=== PATIENT | female | born 1995 | race Caucasian/White ===

== ENCOUNTER 2016-09-18 10:05 | Emergency (ER) | payer SELFPAY ==
--- NOTE | 2016-09-18 11:26 | ER Document Report ---
HPI - HPI Patient complains to provider of: cold Pain Level: 3 Context: 21 yo female with 5 day hx/o runny nose, sore throat, cough, body ache and chills. Associated Symptoms: Nonproductive cough, Headache, Sinus pain/drainage, Sore throat. denies: Nausea, Vomiting, Shortness of breath Exacerbated by: Denies Relieved by: Denies Similar symptoms previously: Yes Recently seen / treated by doctor: No - ROS Systems Reviewed and Negative: Yes All other systems reviewed and negative - CARDIOVASCULAR Cardiovascular: DENIES: Chest pain - DERM Skin Color: Normal Past Medical History - General Information source: Patient - Social History Smoking Status: Never Smoker Chew tobacco use (# tins/day): No Frequency of alcohol use: None Drug Abuse: None Occupation: [employer] Lives with: Family Family History: Reviewed & Not Pertinent Patient has suicidal ideation: No Patient has homicidal ideation: No - Medical History Medical History: Negative Renal/ Medical History: Denies: Hx Peritoneal Dialysis Surgical Hx: Negative - Immunizations Hx Diphtheria, Pertussis, Tetanus Vaccination: Yes Vertical Provider Document - CONSTITUTIONAL Agree With Documented VS: Yes Exam Limitations: No Limitations General Appearance: WD/WN, No Apparent Distress - INFECTION CONTROL TRAVEL OUTSIDE OF THE [place] IN LAST 30 DAYS: No - HEENT HEENT: Atraumatic, PERRLA, Pharyngeal Tenderness, Pharyngeal Erythema. negative : Pharyngeal Exudate - NECK Neck: Normal Inspection, Supple. negative: Lymphadenopathy-Left, Lymphadenopathy-Right - RESPIRATORY Respiratory: Breath Sounds Normal, No Respiratory Distress O2 Sat by Pulse Oximetry: 97 - CARDIOVASCULAR Cardiovascular: Regular Rate, Regular Rhythm - MUSCULOSKELETAL/EXTREMETIES Musculoskeletal/Extremeties: MAEW, FROM - NEURO Level of Consciousness: Awake, Alert, Appropriate - DERM Integumentary: Warm, Dry, No Rash Course - Vital Signs Vital signs: Temp Pulse Resp BP Pulse Ox 98.4 F 85 20 116/73 97 09/18/16 10:10 09/18/16 10:10 09/18/16 10:10 09/18/16 10:10 09/18/16 10:10 Discharge - Discharge Clinical Impression: URI (upper respiratory infection) Qualifiers: URI type: unspecified viral URI Qualified Code(s): J06.9 - Acute upper respiratory infection, unspecified; B97.89 - Other viral agents as the cause of diseases classified elsewhere Condition: Stable Disposition: HOME, SELF-CARE Instructions: Acetaminophen, Sore Throat ([facility]), Upper Respiratory Illness ([facility]) Additional Instructions: lozenges salt water gargles cough med as needed push fluids and rest follow up with primary care if symptoms persist or worsen Prescriptions: Phenylephrine HCl/Cod/Prometh [Phenergan Vc-Codeine Syrup] 5 - 10 ml PO Q4H # 120 ml Forms: Return to Work
[2016-09-18 11:49] VITALS: BP 100/59
== END 2016-09-18 11:49 | disposition home or self-care (01) ==
LOC: ER 10:05
DX: J06.9 Acute upper respiratory infection, unspecified (principal); M79.1 Myalgia; B97.89 Other viral agents as the cause of diseases classified elsewhere
CPT/HCPCS: 87070; 87880; 99283

== ENCOUNTER 2018-05-13 13:06 | Emergency (ER) | payer SELFPAY ==
[2018-05-13 13:14] VITALS: BP 123/65
[2018-05-13] MEDS ORDERED: LORATADINE 10 MG TABLET PO ONE (13:59)
[2018-05-13] MEDS ORDERED: IBUPROFEN 600 MG TABLET PO ONE (13:59)
[2018-05-13] MEDS ORDERED: GUAIFENESIN 600 MG TABLET.SA PO ONE (13:59)
[2018-05-13] MEDS ORDERED: PSEUDOEPHEDRINE HCL 30 MG TABLET PO ONE (13:59)
--- NOTE | 2018-05-13 14:06 | ER Document Report ---
ED ENT - General Chief Complaint: Sore Throat Stated Complaint: SORE THROAT/COUGH Time Seen by Provider: 05/13/18 13:47 Mode of Arrival: Ambulatory Information source: Patient Notes: 21-year-old female presented to ED for cough cold congestion sore throat with right ear pain postnasal drip. She states she has been having these symptoms for about 3 or 4 days. Patient is alert and oriented respirations regular and unlabored speaking in full sentences walks with a even steady gait. TRAVEL OUTSIDE OF THE [place] IN LAST 30 DAYS: No - HPI Patient complains to provider of: Ear problem, Nose problem, Throat problem Onset: Other - 3 days Onset/Duration: Intermittent Quality of pain: Achy Severity: Moderate Pain Level: 3 Context: Recent Illness Location of pain: Ears, Nose, Sinus, Throat Associated symptoms: Congestion, Cough, Ear pain, Runny nose, Sinus pain, Sinus drainage, Sore throat. denies: Fever Similar symptoms previously: Yes Recently seen / treated by doctor: No - Related Data Allergies/Adverse Reactions: No Known Drug Allergies Allergy (Verified 05/13/18 13:07) Past Medical History - General Information source: Patient - Social History Smoking Status: Never Smoker Chew tobacco use (# tins/day): No Frequency of alcohol use: Rare Drug Abuse: None Occupation: fast food Lives with: Spouse/Significant other Family History: Reviewed & Not Pertinent Patient has suicidal ideation: No Patient has homicidal ideation: No - Past Medical History Cardiac Medical History: Reports: None Pulmonary Medical History: Reports: None EENT Medical History: Reports: None Neurological Medical History: Reports: None Endocrine Medical History: Reports: None Renal/ Medical History: Reports: None Malignancy Medical History: Reports: None GI Medical History: Reports: None Musculoskeletal Medical History: Reports None Skin Medical History: Reports None Psychiatric Medical History: Reports: None Traumatic Medical History: Reports: None Infectious Medical History: Reports: None Surgical Hx: Negative Past Surgical History: Reports: None - Immunizations Immunizations up to date: Yes Hx Diphtheria, Pertussis, Tetanus Vaccination: Yes Review of Systems - Review of Systems Constitutional: Recent illness. denies: Chills, Fever EENT: Ear pain, Nose congestion, Nose discharge, Sinus pressure, Sinus discharge, Throat pain Cardiovascular: No symptoms reported Respiratory: Cough Gastrointestinal: No symptoms reported Genitourinary: No symptoms reported Female Genitourinary: No symptoms reported Musculoskeletal: No symptoms reported Skin: No symptoms reported Hematologic/Lymphatic: No symptoms reported Neurological/Psychological: No symptoms reported Physical Exam - Vital signs Vitals: Temp Pulse Resp BP Pulse Ox 98.3 F 77 16 123/65 98 05/13/18 13:12 05/13/18 13:12 05/13/18 13:12 05/13/18 13:12 05/13/18 13:12 Interpretation: Normal - General General appearance: Appears well, Alert - HEENT Head: Normocephalic, Atraumatic Eyes: Normal Pupils: PERRL Ears: Normal External canal: Normal Tympanic membrane: Normal Sinus: Normal Nasal: Purulent discharge, Swelling Mouth/Lips: Normal Mucous membranes: Normal Pharynx: Post nasal drainage. No: Erythema, Exudate, Peritonsillar abscess, Retropharyngeal abscess, Tonsillar hypertrophy, Potential airway comprom. Neck: Normal - Respiratory Respiratory status: No respiratory distress Chest status: Nontender Breath sounds: Nonproductive cough. No: Productive cough, Rales, Rhonchi, Stridor, Wheezing Chest palpation: Normal - Cardiovascular Rhythm: Regular Heart sounds: Normal auscultation Murmur: No - Abdominal Inspection: Normal Distension: No distension Bowel sounds: Normal Tenderness: Nontender Organomegaly: No organomegaly - Back Back: Normal, Nontender - Extremities General upper extremity: Normal inspection, Nontender, Normal color, Normal ROM, Normal temperature General lower extremity: Normal inspection, Nontender, Normal color, Normal ROM, Normal temperature, Normal weight bearing. No: Andrés's sign - Neurological Neuro grossly intact: Yes Cognition: Normal Orientation: AAOx4 [place] Coma Scale Eye Opening: Spontaneous Zachery Coma Scale Verbal: Oriented Z[place]y Coma Scale Motor: Obeys Commands [place] Coma Scale Total: 15 Speech: Normal Motor strength normal: LUE, RUE, LLE, RLE Sensory: Normal - Psychological Associated symptoms: Normal affect, Normal mood - Skin Skin Temperature: Warm Skin Moisture: Dry Skin Color: Normal Course - Vital Signs Vital signs: Temp Pulse Resp BP Pulse Ox 98.3 F 77 16 123/65 98 05/13/18 13:12 05/13/18 13:12 05/13/18 13:12 05/13/18 13:12 05/13/18 13:12 Discharge - Discharge Clinical Impression: Sore throat (viral) URI (upper respiratory infection) Qualifiers: URI type: unspecified viral URI Qualified Code(s): J06.9 - Acute upper respiratory infection, unspecified Condition: Stable Disposition: HOME, SELF-CARE Instructions: Family Physicians / Practices Additional Instructions: SORE THROAT: Sore throats may be caused by viruses, bacteria, or fungi. Most are due to a virus, and must get better on their own. Bacterial sore throats, particularly those due to "strep," need treatment with antibiotics. If an antibiotic is prescribed, be sure to take the medication for a full 10 days. Failure to take the antibiotic can result in complications such as rheumatic fever. Sometimes, an injection of antibiotics is given instead of pills or liquid. This single "shot" is equal in effectiveness to the oral medication. To relieve symptoms, take acetaminophen for pain. Sip clear liquids frequently, or eat popsicles or ice chips. Anesthetic sprays or lozenges may help. Make sure the air in the room is not too dry. Avoid using decongestants or antihistamines. Call the doctor if there is no improvement in two days, or if you have difficulty breathing, increasing throat pain, high fever, rash, or frequent vomiting. UPPER RESPIRATORY ILLNESS: You have a viral infection of the respiratory passages -- a "cold." This common infection causes nasal congestion, drainage, and often sore throat and cough. It is highly contagious. The disease usually lasts about 10 to 14 days. There is no "cure" for the viral infection -- it must run its course. If there is a complication, such as bacterial infection in the nose, sinuses, middle ear, or bronchial tubes, antibiotics may be required. The antibiotics won't affect the virus. Drink plenty of fluids. A humidifier may help. An expectorant medication or decongestant may make you more comfortable. Use acetaminophen or ibuprofen for fever or aches. See the doctor if fever persists over two days, if there is any significant worsening of your symptoms, or if you simply fail to improve as expected. USE OF ACETAMINOPHEN (Tylenol): Acetaminophen may be taken for pain relief or fever control. It's much safer than aspirin, offering a wider range of "safe" dosages. It is safe during . Some brand names are Tylenol, Panadol, Datril, Anacin 3, Tempra, and Liquiprin. Acetaminophen can be repeated every four hours. The following are maximum recommended dosages: >89 pounds or adults 650 mg to 900 mg Acetaminophen can be repeated every four hours. Maximum dose not to exceed 4000 mg a day. You were treated today with Claritin 10 mg, Sudafed 30 mg, Mucinex 600 mg, and ibuprofen 600 mg, these are all lxfn-yyd-oqveltr medications that you can use for your cough cold congestion and sore throat. You can also use Flonase nasal spray use as according to the box instructions. You can also use Chloraseptic spray which will help with the pain in your throat. You can also use salt and soda solution gargles which will decrease the secretions of the back your throat which will decrease her coughing. Salt and soda solution 1 quart of water 1 tablespoon of salt 1 teaspoon of baking soda Mixed 3 ingredients together and boil for 1 minute Placed in a covered quart jar Use 1/2 ounce of cold solution to gargle 3 times a day FOLLOW-UP CARE: If you have been referred to a physician for follow-up care, call the physicians office for an appointment as you were instructed or within the next two days. If you experience worsening or a significant change in your symptoms, notify the physician immediately or return to the Emergency Department at any time for re-evaluation. Forms: Return to Work
== END 2018-05-13 14:22 | disposition home or self-care (01) ==
LOC: ER 13:06
DX: J02.8 Acute pharyngitis due to other specified organisms (principal); B97.89 Other viral agents as the cause of diseases classified elsewhere; R05 Cough; H92.01 Otalgia, right ear; R09.82 Postnasal drip; J34.89 Other specified disorders of nose and nasal sinuses
CPT/HCPCS: 99282

== ENCOUNTER 2019-07-31 00:08 | Inpatient (IN) | payer SELFPAY ==
[2019-07-31] MEDS ORDERED: ACETAMINOPHEN 325 MG TABLET PO ONE (02:11)
[2019-07-31] MEDS ORDERED: CLINDAMYCIN 600 MG/D5W RTU 600 MG/50 ML RTUPB IV ONE (02:11)
[2019-07-31] MEDS ORDERED: NORMAL SALINE IV ONE (02:11)
[2019-07-31] MEDS ORDERED: OXYCODONE HCL IR 5 MG TABLET PO ONE (02:13)
--- NOTE | 2019-07-31 02:14 | ER Document Report ---
ED Oral Problem - General Chief Complaint: tooth abcess Stated Complaint: SEVERE TOOTHACHE Time Seen by Provider: 07/31/19 01:58 Mode of Arrival: Ambulatory Information source: Patient Notes: Patient presents with right lower jaw swelling that started yesterday. Patient has had dental pain for the past week. No fever. Patient has an upcoming dental appointment in 4 days. TRAVEL OUTSIDE OF THE [place] IN LAST 30 DAYS: No - HPI Patient complains to provider of: Swelling of jaw Onset: Yesterday Onset: Gradual Quality of pain: Achy Pain Level: 4 Associated symptoms: Jaw pain, Toothache. denies: Cough, Fever Similar symptoms previously: No Recently seen / treated by doctor/dentist: No - Related Data Allergies/Adverse Reactions: No Known Drug Allergies Allergy (Verified 05/13/18 13:07) Past Medical History - General Information source: Patient - Social History Smoking Status: Never Smoker Frequency of alcohol use: None Drug Abuse: None Occupation: Foodservice Lives with: Family Family History: Reviewed & Not Pertinent Patient has homicidal ideation: No - Medical History Medical History: Negative Renal/ Medical History: Denies: Hx Peritoneal Dialysis Surgical Hx: Negative - Immunizations Immunizations up to date: Yes Hx Diphtheria, Pertussis, Tetanus Vaccination: Yes Review of Systems - Review of Systems Constitutional: No symptoms reported. denies: Fever EENT: Dental problem Cardiovascular: No symptoms reported Respiratory: No symptoms reported. denies: Cough, Short of breath Gastrointestinal: No symptoms reported. denies: Nausea, Vomiting Genitourinary: No symptoms reported Female Genitourinary: No symptoms reported Musculoskeletal: No symptoms reported Skin: No symptoms reported Hematologic/Lymphatic: No symptoms reported Neurological/Psychological: No symptoms reported Physical Exam - Vital signs Vitals: Temp 99 F 07/31/19 00:16 - General General appearance: Appears well, Alert In distress: Mild - HEENT Head: Normocephalic, Atraumatic Eyes: Normal Conjunctiva: Normal Nasal: Normal Mouth/Lips: Normal Mucous membranes: Dry Teeth diagram: 1 - Dental decay, tenderness, no trismus, no sublingual or submental swelling. Patient with right mandibular swelling Pharynx: Normal. No: Erythema, Tonsillar hypertrophy Neck: Normal, Supple. No: Lymphadenopathy - Respiratory Respiratory status: No respiratory distress Chest status: Nontender Breath sounds: Normal. No: Rales, Rhonchi, Stridor, Wheezing Chest palpation: Normal - Cardiovascular Rhythm: Tachycardia Heart sounds: S1 appreciated, S2 appreciated - Abdominal Inspection: Normal - Back Back: Normal. No: CVA tenderness - Extremities General upper extremity: Normal inspection, Normal strength General lower extremity: Normal inspection, Normal strength - Neurological Neuro grossly intact: Yes Cognition: Normal Zachery Coma Scale Eye Opening: Spontaneous [place] Coma Scale Verbal: Oriented [place] Coma Scale Motor: Obeys Commands [place] Coma Scale Total: 15 - Psychological Associated symptoms: Normal affect, Normal mood - Skin Skin Temperature: Warm Skin Moisture: Dry Skin Color: Normal Course - Re-evaluation Re-evalutation: 07/31/19 03:37 Patient with leukocytosis with a shift and bandemia. Patient with no elevation in lactic acid. Patient's tachycardia and mild hypotension improved after IV fluid bolus. Consulted with Dr. Argueta regarding patient presentation. Recommends imaging of the facial infection at this time. 07/31/19 05:[address] Faye regarding patient presentation with concerns about initial hypotension, tachycardia, leukocytosis with bandemia. Agrees to admit patient to telemetry observation at this time. Patient is agreeable with this plan of care. - Vital Signs Vital signs: Temp Pulse Resp BP Pulse Ox 99.0 F 118 H 15 95/61 L 98 07/31/19 00:17 07/31/19 00:17 07/31/19 05:01 07/31/19 05:00 07/31/19 05:01 - Laboratory Result Diagrams: 07/31/19 01:34 07/31/19 01:34 Laboratory results interpreted by me: 07/31/19 07/31/19 07/31/19 01:34 01:34 02:40 WBC 15.6 H Seg Neuts % (Manual) 82 H Band Neutrophils % 7 H Lymphocytes % (Manual) 3 L Abs Neuts (Manual) 13.9 H Potassium 3.3 L BUN 6 L Glucose 115 H POC Glucose 114 H Labs- Entire Visit 07/31/19 07/31/19 07/31/19 01:34 01:34 01:34 WBC 15.6 H RBC 4.43 Hgb 13.4 Hct 38.5 MCV 87 MCH 30.3 MCHC 34.9 RDW 12.6 Plt Count 166 Lymph % (Auto) Not Reportable Mayes % (Auto) Not Reportable Eos % (Auto) Not Reportable Baso % (Auto) Not Reportable Absolute Neuts (auto) Not Reportable Absolute Lymphs (auto) Not Reportable Absolute Monos (auto) Not Reportable Absolute Eos (auto) Not Reportable Absolute Basos (auto) Not Reportable Total Counted 100 Seg Neutrophils % Not Reportable Seg Neuts % (Manual) 82 H Band Neutrophils % 7 H Lymphocytes % (Manual) 3 L Monocytes % (Manual) 7 Eosinophils % (Manual) 1 Basophils % (Manual) 0 Abs Neuts (Manual) 13.9 H Abs Lymphs (Manual) 0.5 Abs Monocytes (Manual) 1.1 Absolute Eos (Manual) 0.2 Abs Basophils (Manual) 0.0 Platelet Comment ADEQUATE RBC Morph Comment NORMO-CYTIC/CHROMIC PT 14.1 INR 1.09 VBG pH VBG pCO2 VBG HCO3 VBG Base Excess Sodium 138.8 Potassium 3.3 L Chloride 102 Carbon Dioxide 25 Anion Gap 12 BUN 6 L Creatinine 0.59 Est GFR ( Amer) > 60 Est GFR (MDRD) Non-Af > 60 Glucose 115 H POC Glucose Lactic Acid Calcium 9.1 Total Bilirubin 1.0 Direct Bilirubin 0.0 Neonat Total Bilirubin Not Reportable Neonat Direct Bilirubin Not Reportable Neonat Indirect Bili Not Reportable AST 17 ALT 10 Alkaline Phosphatase 66 Total Protein 7.5 Albumin 4.6 Serum HCG, Qual 07/31/19 07/31/19 07/31/19 01:34 02:40 02:40 WBC RBC Hgb Hct MCV MCH MCHC RDW Plt Count Lymph % (Auto) Mayes % (Auto) Eos % (Auto) Baso % (Auto) Absolute Neuts (auto) Absolute Lymphs (auto) Absolute Monos (auto) Absolute Eos (auto) Absolute Basos (auto) Total Counted Seg Neutrophils % Seg Neuts % (Manual) Band Neutrophils % Lymphocytes % (Manual) Monocytes % (Manual) Eosinophils % (Manual) Basophils % (Manual) Abs Neuts (Manual) Abs Lymphs (Manual) Abs Monocytes (Manual) Absolute Eos (Manual) Abs Basophils (Manual) Platelet Comment RBC Morph Comment PT INR VBG pH 7.37 VBG pCO2 40.0 VBG HCO3 22.8 VBG Base Excess -2.2 Sodium Potassium Chloride Carbon Dioxide Anion Gap BUN Creatinine Est GFR ( Amer) Est GFR (MDRD) Non-Af Glucose POC Glucose Lactic Acid 0.7 Calcium Total Bilirubin Direct Bilirubin Neonat Total Bilirubin Neonat Direct Bilirubin Neonat Indirect Bili AST ALT Alkaline Phosphatase Total Protein Albumin Serum HCG, Qual NEGATIVE 07/31/19 07/31/19 02:40 04:37 WBC RBC Hgb Hct MCV MCH MCHC RDW Plt Count Lymph % (Auto) Mayes % (Auto) Eos % (Auto) Baso % (Auto) Absolute Neuts (auto) Absolute Lymphs (auto) Absolute Monos (auto) Absolute Eos (auto) Absolute Basos (auto) Total Counted Seg Neutrophils % Seg Neuts % (Manual) Band Neutrophils % Lymphocytes % (Manual) Monocytes % (Manual) Eosinophils % (Manual) Basophils % (Manual) Abs Neuts (Manual) Abs Lymphs (Manual) Abs Monocytes (Manual) Absolute Eos (Manual) Abs Basophils (Manual) Platelet Comment RBC Morph Comment PT INR VBG pH VBG pCO2 VBG HCO3 VBG Base Excess Sodium Potassium Chloride Carbon Dioxide Anion Gap BUN Creatinine Est GFR ( Amer) Est GFR (MDRD) Non-Af Glucose POC Glucose 114 H Lactic Acid 0.7 Calcium Total Bilirubin Direct Bilirubin Neonat Total Bilirubin Neonat Direct Bilirubin Neonat Indirect Bili AST ALT Alkaline Phosphatase Total Protein Albumin Serum HCG, Qual - Diagnostic Test Radiology reviewed: Reports reviewed Discharge - Discharge Clinical Impression: Facial cellulitis, Bandemia Leukocytosis Qualifiers: Leukocytosis type: unspecified Qualified Code(s): D72.829 - Elevated white blood cell count, unspecified Condition: Fair Disposition: ADMITTED OBSERVATION Admitting Provider: Yunier (Hospitalist) Unit Admitted: Telemetry
[2019-07-31 02:28] LABS: ALBUMIN 4.6 g/dL (3.5-5.0); ALKALINE PHOSPHATASE 66 U/L (38-126); ANION GAP 12 (5-19); ASPARTATE AMINO TRANSFERASE 17 U/L (14-36); BLOOD UREA NITROGEN 6 mg/dL (7-20); CALCIUM 9.1 mg/dL (8.4-10.2); CARBON DIOXIDE 25 mmol/L (22-30); CHLORIDE 102 mmol/L (98-107); GLUCOSE 115 mg/dL (75-110); POTASSIUM 3.3 mmol/L (3.6-5.0); TOTAL PROTEIN 7.5 g/dL (6.3-8.2)
[2019-07-31 02:33] LABS: HEMATOCRIT 38.5 % (36.0-47.0); HEMOGLOBIN 13.4 g/dL (12.0-15.5); MEAN CORPUSCULAR HEMOGLOBIN 30.3 pg (27.0-33.4); MEAN CORPUSCULAR HGB CONC 34.9 g/dL (32.0-36.0); MEAN CORPUSCULAR VOLUME 87 fl (80-97); PLATELET COUNT 166 10^3/uL (150-450); RED BLOOD COUNT 4.43 10^6/uL (3.72-5.28); RED CELL DISTRIBUTION WIDTH 12.6 % (11.5-14.0); WHITE BLOOD COUNT 15.6 10^3/uL (4.0-10.5)
[2019-07-31 02:42] LABS: INTERNATIONAL RATION (INR) 1.09; PROTHROMBIN TIME 14.1 SEC (11.4-15.4)
[2019-07-31 02:55] LABS: ABSOLUTE LYMPHOCYTES# (MANUAL) 0.5 10^3/uL (0.5-4.7); ABSOLUTE MONOCYTES # (MANUAL) 1.1 10^3/uL (0.1-1.4); BAND NEUTROPHILS % (MANUAL) 7 % (3-5); BASOPHILS % (MANUAL) 0 % (0-2); EOSINOPHILS % (MANUAL) 1 % (0-6); LYMPHOCYTES % (MANUAL) 3 % (13-45); MONOCYTES % (MANUAL) 7 % (3-13); PLATELET COMMENT ADEQUATE; RBC MORPHOLOGY COMMENT NORMO-CYTIC/CHROMIC; SEGMENTED NEUTROPHILS % (MAN) 82 % (42-78); TOTAL CELLS COUNTED 100
[2019-07-31 02:56] LABS: VENOUS BLOOD BASE EXCESS -2.2 mmol/L; VENOUS BLOOD HCO3 22.8 mmol/L (20-32); VENOUS BLOOD PH 7.37 (7.30-7.42)
--- NOTE | 2019-07-31 04:55 | RADIOLOGY REPORT (SQ) ---
EXAM DESCRIPTION: CT MAXILLOFACIAL WITH IV CONTRAST COMPLETED DATE/TME: 07/31/2019 03:36 CLINICAL HISTORY: 24 years Female, dental infection, facial swelling Comparison: The. Technique: No contrast. Coronal and sagittal reformat. This exam was performed according to our departmental dose-optimization program, which includes automated exposure control, adjustment of the mA and/or kV according to patient size and/or use of iterative reconstruction technique.[facility]: Dose Right [facility]: CareDose [facility]: Dose Right [facility]: Teradose 4D [facility]: Smart [employer] LIMITATIONS: None Findings: Moderate diffuse subcutaneous edema/cellulitis associated with the right buccal tissue/jaw. Moderate bilateral submandibular lymphadenopathy. Impacted right mandibular molar. Facial bones including orbits, nasal bone, paranasal sinuses, and pterygoid plates appear otherwise intact. Unremarkable partially visualized inferior cranium, temporal bone, and upper neck. IMPRESSION: Moderate diffuse subcutaneous edema/cellulitis associated with the right buccal tissue/jaw. Moderate bilateral submandibular lymphadenopathy.
[2019-07-31] MEDS ORDERED: ACETAMINOPHEN 325 MG TABLET PO PRN (05:24)
[2019-07-31] MEDS ORDERED: MAG HYDROX/AL HYDROX/SIMETH SUSP 30 ML UDCUP PO PRN (05:25)
[2019-07-31] MEDS ORDERED: MAGNESIUM HYDROXIDE SUSP 30 ML UDCUP PO PRN (05:25)
[2019-07-31] MEDS ORDERED: ONDANSETRON HCL INJ/PF 4 MG/2 ML SDV IV PRN (05:25)
[2019-07-31] MEDS ORDERED: AMPICILLIN SOD/SULBACTAM 3 GM VIAL IV PRN (06:09)
--- NOTE | 2019-07-31 06:22 | PDOC H&P ---
History of Present Illness Admission Date/PCP: 07/31/19 05:33 Patient complains of: Tooth abscess History of Present Illness: LISA ADLER is a 24 year old female without significant past medical history who presents after 7 to 10 days of dental pain developing right lower jaw swelling prompting evaluation in emergency department where she is found to have facial cellulitis without abscess by CT imaging, sepsis with bandemia and hypokalemia. She is referred to the hospitalist for admission Past Medical History Medical History: None Past Surgical History Past Surgical History: Reports: None Social History Information Source: Patient, [facility] Records Lives with: Family Smoking Status: Never Smoker Frequency of Alcohol Use: None Drugs: None - Advance Directive Resuscitation Status: Full Code Family History Family History: Hypertension Parental Family History Reviewed: Yes Children Family History Reviewed: Yes Sibling(s) Family History Reviewed.: Yes Medication/Allergy Home Medications: No.137/Iron/Folic Acd [ Vitamin Tablet] 1 tab PO DAILY 10/29/14 Ferrous Sulfate [Feosol 325 mg Tablet] 325 mg PO BID #60 tablet 10/31/14 Phenylephrine HCl/Cod/Prometh [Phenergan Vc-Codeine Syrup] 5 - 10 ml PO Q4H #120 ml 09/18/16 Allergies/Adverse Reactions: No Known Drug Allergies Allergy (Verified 05/13/18 13:07) Review of Systems Constitutional: ABSENT: chills, fever(s), headache(s), weight gain, weight loss Eyes: ABSENT: visual disturbances Ears: ABSENT: hearing changes Cardiovascular: ABSENT: chest pain, dyspnea on exertion, edema, orthropnea, palpitations Respiratory: ABSENT: cough, hemoptysis Gastrointestinal: ABSENT: abdominal pain, constipation, diarrhea, hematemesis, hematochezia, nausea, vomiting Genitourinary: ABSENT: dysuria, hematuria Musculoskeletal: ABSENT: joint swelling Integumentary: ABSENT: rash, wounds Neurological: ABSENT: abnormal gait, abnormal speech, confusion, dizziness, focal weakness, syncope Psychiatric: ABSENT: anxiety, depression, homidical ideation, suicidal ideation Endocrine: ABSENT: cold intolerance, heat intolerance, polydipsia, polyuria Hematologic/Lymphatic: ABSENT: easy bleeding, easy bruising Physical Exam Vital Signs: Temp Pulse Resp BP Pulse Ox 99.0 F 118 H 15 95/61 L 98 07/31/19 00:17 07/31/19 00:17 07/31/19 05:01 07/31/19 05:00 07/31/19 05:01 Intake & Output 07/29/19 07/30/19 07/31/19 11:59 11:59 11:59 Intake Total 50 Balance 50 Weight 50.4 kg General appearance: PRESENT: cooperative, mild distress, well-developed, well- nourished Head exam: PRESENT: atraumatic, normocephalic Eye exam: PRESENT: conjunctiva pink, EOMI, PERRLA. ABSENT: scleral icterus Ear exam: PRESENT: normal external ear exam Mouth exam: PRESENT: moist, tongue midline, other - Right lower jaw swelling and pain no visible fluctuance Teeth exam: PRESENT: dental caries, poor dentation Throat exam: ABSENT: post pharyngeal erythema, tonsillar erythema, tonsillar exudate Neck exam: ABSENT: carotid bruit, JVD, lymphadenopathy, thyromegaly Respiratory exam: PRESENT: clear to auscultation nickolas. ABSENT: rales, rhonchi, wheezes Cardiovascular exam: PRESENT: tachycardia. ABSENT: diastolic murmur, rubs, systolic murmur Pulses: PRESENT: normal dorsalis pedis pul Vascular exam: PRESENT: normal capillary refill GI/Abdominal exam: PRESENT: normal bowel sounds, soft. ABSENT: distended, guarding, mass, organolmegaly, rebound, tenderness Rectal exam: PRESENT: deferred Extremities exam: PRESENT: full ROM. ABSENT: calf tenderness, clubbing, pedal edema Neurological exam: PRESENT: alert, awake, oriented to person, oriented to place, oriented to time, oriented to situation, CN II-XII grossly intact. ABSENT: motor sensory deficit Psychiatric exam: PRESENT: appropriate affect, normal mood. ABSENT: homicidal ideation, suicidal ideation Skin exam: PRESENT: dry, intact, warm. ABSENT: cyanosis, rash Results Laboratory Results: 07/31/19 01:34 07/31/19 01:34 07/31/19 07/31/19 07/31/19 01:34 01:34 01:34 WBC 15.6 H RBC 4.43 Hgb 13.4 Hct 38.5 MCV 87 MCH 30.3 MCHC 34.9 RDW 12.6 Plt Count 166 Seg Neutrophils % Not Reportable VBG pH VBG pCO2 VBG HCO3 VBG Base Excess Sodium 138.8 Potassium 3.3 L Chloride 102 Carbon Dioxide 25 Anion Gap 12 BUN 6 L Creatinine 0.59 Est GFR ( Amer) > 60 Glucose 115 H Lactic Acid Calcium 9.1 Total Bilirubin 1.0 AST 17 Alkaline Phosphatase 66 Total Protein 7.5 Albumin 4.6 Serum HCG, Qual NEGATIVE 07/31/19 07/31/19 07/31/19 02:40 02:40 04:37 WBC RBC Hgb Hct MCV MCH MCHC RDW Plt Count Seg Neutrophils % VBG pH 7.37 VBG pCO2 40.0 VBG HCO3 22.8 VBG Base Excess -2.2 Sodium Potassium Chloride Carbon Dioxide Anion Gap BUN Creatinine Est GFR ( Amer) Glucose Lactic Acid 0.7 0.7 Calcium Total Bilirubin AST Alkaline Phosphatase Total Protein Albumin Serum HCG, Qual Impressions: Facial Bones CT 07/31/19 03:36 IMPRESSION: Moderate diffuse subcutaneous edema/cellulitis associated with the right buccal tissue/jaw. Moderate bilateral submandibular lymphadenopathy. Assessment and Plan - Diagnosis (1) Sepsis Is this a current diagnosis for this admission?: Yes Plan: Secondary to facial cellulitis complicated by dental caries, IV fluid challenge, Unasyn, follow-up CBC blood culture. (2) Hypokalemia Is this a current diagnosis for this admission?: Yes Plan: IV potassium, follow-up magnesium and potassium labs (3) Bandemia Is this a current diagnosis for this admission?: Yes Plan: Secondary to #1, empiric antibiotics, follow-up blood culture (4) Facial cellulitis Is this a current diagnosis for this admission?: Yes Plan: Secondary to #1, symptomatic management, no abscess, anticipate oral surgery consult. - Time Time Spent with patient: 25-34 minutes - Inpatient Certification Medical Necessity: Need Close Monitoring Due to Risk of Patient Decompensation
[2019-07-31] MEDS: KETOROLAC TROMETHAMINE INJ/PF 30 MG/1 ML SDV IV PRN ×3 (06:44→19:48)
[2019-07-31] MEDS: AMPICILLIN SODIUM/SULBACTAM NA 3 GM in NORMAL SALINE 100 ML IV SCH ×4 (06:46→23:11)
[2019-07-31] MEDS: HEPARIN SOD (PORCINE) 5,000 UNIT/ML 1 ML VIAL SUBCUT SCH ×3 (06:54→21:02)
--- NOTE | 2019-07-31 08:46 | EKG REPORT ---
SEVERITY:- NORMAL ECG - SINUS RHYTHM : Confirmed by: Boby Toro MD 31-Jul-2019 08:46:19
[2019-07-31] MEDS: NORMAL SALINE 1000 ML 1,000 ML IV PRN ×3 (09:09→21:30)
[2019-07-31] MEDS: POTASSI CL 20 MEQ/50 ML RIDER 20 MEQ/50 ML RTUPB IV SCH ×2 (09:10→12:32)
[2019-07-31] MEDS: DOCUSATE SODIUM 100 MG CAPSULE PO SCH ×2 (10:40→17:50)
[2019-07-31] MEDS: OXYCODONE-ACETAMINOPHEN 5-325 MG TABLET PO PRN ×2 (10:43→23:12)
--- NOTE | 2019-07-31 17:57 | Progress Note ---
Provider Note Provider Note: Patient admitted late this morning by Dr. Faye. Started on antibiotics. I called oral surgery and spoke with their office. They will have 1 of their oral surgeons come to see the patient after 12 PM on Friday. We will continue antibiotics and follow-up cultures until then. Patient can have a liquid diet in the meantime she will be n.p.o. after breakfast on Friday. Patient seen and examined Added oral Percocet for pain management. IV fluids continue
[2019-08-01] MEDS: KETOROLAC TROMETHAMINE INJ/PF 30 MG/1 ML SDV IV PRN ×4 (04:57→23:58)
[2019-08-01] MEDS: HEPARIN SOD (PORCINE) 5,000 UNIT/ML 1 ML VIAL SUBCUT SCH ×3 (05:02→21:29)
[2019-08-01] MEDS: AMPICILLIN SODIUM/SULBACTAM NA 3 GM in NORMAL SALINE 100 ML IV SCH ×2 (05:02→11:20)
[2019-08-01 06:25] LABS: ABSOLUTE EOSINOPHILS # (AUTO) 0.1 10^3/uL (0.0-0.6); ABSOLUTE LYMPHOCYTES (AUTO) 0.6 10^3/uL (0.5-4.7); ABSOLUTE MONOCYTES (AUTO) 0.4 10^3/uL (0.1-1.4); ABSOLUTE NEUT (AUTO) 4.7 10^3/uL (1.7-8.2); BASOPHILS % (AUTO) 0.5 % (0-2); EOSINOPHILS % (AUTO) 0.9 % (0-6); HEMATOCRIT 31.5 % (36.0-47.0); LYMPHOCYTES % (AUTO) 9.7 % (13-45); MEAN CORPUSCULAR HEMOGLOBIN 30.9 pg (27.0-33.4); MEAN CORPUSCULAR HGB CONC 35.7 g/dL (32.0-36.0); MEAN CORPUSCULAR VOLUME 87 fl (80-97); MONOCYTES % (AUTO) 6.8 % (3-13); PLATELET COUNT 140 10^3/uL (150-450); RED BLOOD COUNT 3.64 10^6/uL (3.72-5.28); RED CELL DISTRIBUTION WIDTH 12.5 % (11.5-14.0); SEGMENTED NEUTROPHILS % (AUTO) 82.1 % (42-78); TOTAL CELLS COUNTED % (AUTO) 100 %; WHITE BLOOD COUNT 5.8 10^3/uL (4.0-10.5)
[2019-08-01 06:30] LABS: HEMOGLOBIN 11.2 g/dL (12.0-15.5)
[2019-08-01 06:45] LABS: ANION GAP 7 (5-19); BLOOD UREA NITROGEN 4 mg/dL (7-20); CALCIUM 7.7 mg/dL (8.4-10.2); CARBON DIOXIDE 21 mmol/L (22-30); CHLORIDE 106 mmol/L (98-107); GLUCOSE 100 mg/dL (75-110); POTASSIUM 3.5 mmol/L (3.6-5.0)
[2019-08-01] MEDS: OXYCODONE-ACETAMINOPHEN 5-325 MG TABLET PO PRN ×3 (09:18→21:35)
[2019-08-01] MEDS: DOCUSATE SODIUM 100 MG CAPSULE PO SCH ×2 (09:19→17:37)
[2019-08-01] MEDS: NORMAL SALINE 1000 ML 1,000 ML IV PRN ×2 (10:19→21:35)
--- NOTE | 2019-08-01 16:47 | PDOC PROGRESS REPORT ---
Subjective Progress Note for:: 08/01/19 Subjective:: Patient admitted yesterday for oral/facial cellulitis with significant trismus. I consulted oral surgery yesterday and they stated they would see patient tomorrow after 12 PM. She will be made n.p.o. after breakfast as she would not go into the OR at least until that afternoon. Blood cultures are growing gram- negative rods and she has been switched to Zosyn today. She states her jaw edema is coming down and her pain is a bit less as well. Otherwise she has no new complaints. She will need to be given stool softeners today to make sure she does not become constipated. Reason For Visit: SEPSIS FACIAL CELLULITIS Physical Exam Vital Signs: Temp Pulse Resp BP Pulse Ox 98.4 F 83 18 124/79 100 08/01/19 16:00 08/01/19 16:00 08/01/19 16:00 08/01/19 16:00 08/01/19 16:00 Intake & Output 07/31/19 08/01/19 08/02/19 06:59 06:59 06:59 Intake Total 1560 4210 1600 Output Total 1475 801 Balance 1560 2735 799 Weight 50.4 kg 50.4 kg General appearance: PRESENT: no acute distress, well-developed, well-nourished Head exam: PRESENT: atraumatic, normocephalic Eye exam: PRESENT: conjunctiva pink Mouth exam: PRESENT: moist, other - Trismus noted, broken/decayed tooth right side Respiratory exam: PRESENT: clear to auscultation nickolas. ABSENT: rales, rhonchi, wheezes Cardiovascular exam: PRESENT: RRR. ABSENT: diastolic murmur, rubs, systolic murmur GI/Abdominal exam: PRESENT: normal bowel sounds, soft. ABSENT: distended, guarding, mass, organolmegaly, rebound, tenderness Extremities exam: ABSENT: pedal edema Neurological exam: PRESENT: alert, awake, oriented to person, oriented to place, oriented to time, oriented to situation Psychiatric exam: PRESENT: appropriate affect, normal mood Skin exam: PRESENT: dry, intact, warm Results Laboratory Results: 08/01/19 05:29 08/01/19 05:29 08/01/19 08/01/19 08/01/19 05:29 05: 05:29 WBC 5.8 RBC 3.64 L Hgb 11.2 L D Hct 31.5 L MCV 87 MCH 30.9 MCHC 35.7 RDW 12.5 Plt Count 140 L Seg Neutrophils % 82.1 H Sodium 133.7 L Potassium 3.5 L Chloride 106 Carbon Dioxide 21 L Anion Gap 7 BUN 4 L Creatinine 0.48 L Est GFR ( Amer) > 60 Glucose 100 Calcium 7.7 L Magnesium 1.8 Impressions: Facial Bones CT 07/31/19 03:36 IMPRESSION: Moderate diffuse subcutaneous edema/cellulitis associated with the right buccal tissue/jaw. Moderate bilateral submandibular lymphadenopathy. Assessment and Plan - Diagnosis (1) Facial cellulitis Is this a current diagnosis for this admission?: Yes Plan: Oral surgery consulted, will see patient 08/01 Empiric IV antibiotics with Zosyn Blood cultures growing gram-negative rods IV fluids as needed (2) Sepsis Qualifiers: Sepsis type: sepsis due to unspecified organism Sepsis acute organ dysfun ction status: unspecified Qualified Code(s): A41.9 - Sepsis, unspecified organism Is this a current diagnosis for this admission?: Yes Plan: Secondary to facial cellulitis IV fluids Antibiotics Oral surgery consult for source control (3) Poor dentition Is this a current diagnosis for this admission?: Yes (4) Hypokalemia Is this a current diagnosis for this admission?: Yes Plan: IV potassium, trend magnesium and potassium labs - Time Time Spent with patient: 15-24 minutes Medications reviewed and adjusted accordingly: Yes Anticipated discharge: Home Within: within 72 hours - Inpatient Certification Based on my medical assessment, after consideration of the patient's comorbidities, presenting symptoms, or acuity I expect that the services needed warrant INPATIENT care.: Yes I certify that my determination is in accordance with my understanding of Medicare's requirements for reasonable and necessary INPATIENT services [42 CFR 412.3e].: Yes Medical Necessity: Significant Comorbidiites Make Outpatient Treatment Too Risky, Need Close Monitoring Due to Risk of Patient Decompensation, Need For IV Fluids, Need for IV Antibiotics, Risk of Complication if Not Cared For in [facility], Risk of Diagnosis Which Will Require Inpatient Eval/Care/Monitoring
[2019-08-01] MEDS: PIPERACILLIN SODIUM/TAZOBACTAM 3.375 GM in NORMAL SALINE 100 ML IV SCH ×2 (17:38→23:58)
[2019-08-01] MEDS ORDERED: PIPERACILLIN/TAZOBACTAM 3.375 GM VIAL IV SCH (18:00)
[2019-08-02] MEDS: HEPARIN SOD (PORCINE) 5,000 UNIT/ML 1 ML VIAL SUBCUT SCH (05:45)
[2019-08-02] MEDS: PIPERACILLIN SODIUM/TAZOBACTAM 3.375 GM in NORMAL SALINE 100 ML IV SCH (05:45)
[2019-08-02] MEDS: NORMAL SALINE 1000 ML 1,000 ML IV PRN (07:02)
[2019-08-02] MEDS ORDERED: ONDANSETRON HCL INJ/PF 4 MG/2 ML SDV IV PRN (08:00)
[2019-08-02] MEDS: OXYCODONE-ACETAMINOPHEN 5-325 MG TABLET PO PRN (08:50)
--- NOTE | 2019-08-02 10:00 | PDOC PROGRESS REPORT ---
Subjective Progress Note for:: 08/02/19 - Pt seen at 0800 Subjective:: Pt states that she is getting better and that the swelling has decreased and that she can open her mouth better. Reason For Visit: SEPSIS FACIAL CELLULITIS Physical Exam Vital Signs: Temp Pulse Resp BP Pulse Ox 98.2 F 82 18 137/82 H 97 08/02/19 07:33 08/02/19 07:33 08/02/19 07:33 08/02/19 07:33 08/02/19 07:33 Intake & Output 08/01/19 08/02/19 08/03/19 06:59 06:59 06:59 Intake Total 4210 3560 1000 Output Total 1475 801 Balance 2735 2759 1000 Weight 50.4 kg 50.4 kg 50.4 kg General appearance: PRESENT: no acute distress Mouth exam: PRESENT: tongue midline, other - mild right sided swelling of the mandible with vestibular swelling lower right Teeth exam: PRESENT: dental caries Results Laboratory Results: 08/01/19 05:29 08/01/19 05:29 08/01/19 05:29 Magnesium 1.8 Impressions: Facial Bones CT 07/31/19 03:36 IMPRESSION: Moderate diffuse subcutaneous edema/cellulitis associated with the right buccal tissue/jaw. Moderate bilateral submandibular lymphadenopathy. Assessment & Plan - Plan Summary Plan Summary: Pt needs extraction of lower right tooth (most likely #30, but will know for sure after obtain panoramic image in office) and possible I&D. I feel that this can be managed as an outpatient in office. I discussed with Suzi Neves NP.
[2019-08-02] MEDS: DOCUSATE SODIUM 100 MG CAPSULE PO SCH (10:43)
[2019-08-02 11:09] VITALS: BP 124/79
--- NOTE | 2019-08-02 18:57 | PDOC DISCHARGE SUMMARY ---
Impression - Admit/DC Date/PCP Admission Date/Primary Care Provider: 07/31/19 05:33 Discharge Date: 08/02/19 - Additional Information Resuscitation Status: Full Code Discharge Diet: Other (Comments) Discharge Activity: Activity As Tolerated, Balance Activity w/Rest Referrals: JACQUELYN ANGEL DDS [ACTIVE STAFF] - 08/02/19 10:15 am (Go directly to Dr. Angel's office. Do NOT eat or drink.) Prescriptions: Amoxicillin/Potassium Clav [Augmentin 875-125 Tablet] 1 tab PO BID #20 tab Metronidazole 500 mg PO Q8HP PRN #30 tablet PRN Reason: Oxycodone HCl/Acetaminophen [Percocet 5-325 mg Tablet] 1 tab PO Q6HP PRN #12 tablet PRN Reason: Ondansetron [Zofran Odt 4 mg Tablet] 1 - 2 tab PO Q4HP PRN #20 tab.rapdis PRN Reason: Home Medications: Acetaminophen [Tylenol 325 mg Tablet] 650 mg PO Q6HP PRN tablet 08/02/19 Amoxicillin/Potassium Clav [Augmentin 875-125 Tablet] 1 tab PO BID #20 tab 08/01 Docusate Sodium [Colace 100 mg Capsule] 100 mg PO BID capsule 08/02/19 Metronidazole 500 mg PO Q8HP PRN #30 tablet 08/02/19 Ondansetron [Zofran Odt 4 mg Tablet] 1 - 2 tab PO Q4HP PRN #20 tab.rapdis 08/02/19 Oxycodone HCl/Acetaminophen [Percocet 5-325 mg Tablet] 1 tab PO Q6HP PRN #12 tablet 08/02/19 History of Present Illiness History of Present Illness: Per H&P by Dr. Faye: LISA ADLER is a 24 year old female without significant past medical history who presents after 7 to 10 days of dental pain developing right lower jaw swelling prompting evaluation in emergency department where she is found to have facial cellulitis without abscess by CT imaging, sepsis with bandemia and hypokalemia. She is referred to the hospitalist for admission Hospital Course Hospital Course: Facial cellulitis Improved. Oral surgery consulted, requested patient d/c directly to his office for extrac tion. Received empiric IV Zosyn x 3 days; d/c with Rx for Augmentin. Blood cultures growing fusobacterium; added p.o. metronidazole Sepsis Resolved. Secondary to facial cellulitis Cultures and antibiotics as above Poor dentition Follow up with Dr. Angel, Oral Surgeon, as above. Hypokalemia Replete. Secondary to poor p.o. intake. Physical Exam Vital Signs: Temp Pulse Resp BP Pulse Ox 98.2 F 82 18 124/79 97 08/02/19 11:06 08/02/19 11:06 08/02/19 11:06 08/02/19 11:06 08/02/19 11:06 Intake & Output 08/01/19 08/02/19 08/03/19 06:59 06:59 06:59 Intake Total 4210 3560 1000 Output Total 1475 801 Balance 2735 2759 1000 Weight 50.4 kg 50.4 kg 50.4 kg General appearance: PRESENT: no acute distress, well-developed, well-nourished Head exam: PRESENT: atraumatic, normocephalic Eye exam: PRESENT: conjunctiva pink, EOMI, PERRLA. ABSENT: scleral icterus Mouth exam: PRESENT: moist, tongue midline, other - Rt mandibular side facial swelling/tenderness Teeth exam: PRESENT: dental caries, dental tenderness Respiratory exam: PRESENT: clear to auscultation nickolas, symmetrical, unlabored. ABSENT: rales, rhonchi, wheezes Cardiovascular exam: PRESENT: RRR, +S1, +S2. ABSENT: diastolic murmur, rubs, systolic murmur Pulses: PRESENT: normal dorsalis pedis pul Vascular exam: PRESENT: normal capillary refill Extremities exam: PRESENT: full ROM. ABSENT: calf tenderness, clubbing, pedal edema Musculoskeletal exam: PRESENT: ambulatory Neurological exam: PRESENT: alert, awake, oriented to person, oriented to place, oriented to time, oriented to situation, CN II-XII grossly intact. ABSENT: motor sensory deficit Psychiatric exam: PRESENT: appropriate affect, normal mood. ABSENT: homicidal ideation, suicidal ideation Skin exam: PRESENT: dry, intact, warm. ABSENT: cyanosis, rash Results Laboratory Results: WBC 5.8 10^3/uL (4.0-10.5) 08/01/19 05:29 RBC 3.64 10^6/uL (3.72-5.28) L 08/01/19 05:29 Hgb 11.2 g/dL (12.0-15.5) L D 05/10/20 05:29 Hct 31.5 % (36.0-47.0) L 08/01/19 05:29 MCV 87 fl (80-97) 08/01/19 05:29 MCH 30.9 pg (27.0-33.4) 08/01/19 05:29 MCHC 35.7 g/dL (32.0-36.0) 08/01/19 05:29 RDW 12.5 % (11.5-14.0) 08/01/19 05:29 Plt Count 140 10^3/uL (150-450) L 08/01/19 05:29 Lymph % (Auto) 9.7 % (13-45) L 08/01/19 05:29 [place]ward % (Auto) 6.8 % (3-13) 08/01/19 05:29 Eos % (Auto) 0.9 % (0-6) 08/01/19 05:29 Baso % (Auto) 0.5 % (0-2) 08/01/19 05:29 Absolute Neuts (auto) 4.7 10^3/uL (1.7-8.2) 08/01/19 05:29 Absolute Lymphs (auto) 0.6 10^3/uL (0.5-4.7) 08/01/19 05:29 Absolute Monos (auto) 0.4 10^3/uL (0.1-1.4) 08/01/19 05:29 Absolute Eos (auto) 0.1 10^3/uL (0.0-0.6) 08/01/19 05:29 Absolute Basos (auto) 0.0 10^3/uL (0.0-0.2) 08/01/19 05:29 Total Counted 100 07/31/19 01:34 Seg Neutrophils % 82.1 % (42-78) H 08/01/19 05:29 Seg Neuts % (Manual) 82 % (42-78) H 07/31/19 01:34 Band Neutrophils % 7 % (3-5) H 07/31/19 01:34 Lymphocytes % (Manual) 3 % (13-45) L 07/31/19 01:34 Monocytes % (Manual) 7 % (3-13) 07/31/19 01:34 Eosinophils % (Manual) 1 % (0-6) 07/31/19 01:34 Basophils % (Manual) 0 % (0-2) 07/31/19 01:34 Abs Neuts (Manual) 13.9 10^3/uL (1.7-8.2) H 07/31/19 01:34 Abs Lymphs (Manual) 0.5 10^3/uL (0.5-4.7) 07/31/19 01:34 Abs Monocytes (Manual) 1.1 10^3/uL (0.1-1.4) 07/31/19 01:34 Absolute Eos (Manual) 0.2 10^3/uL (0.0-0.6) 07/31/19 01:34 Abs Basophils (Manual) 0.0 10^3/uL (0.0-0.2) 07/31/19 01:34 Platelet Comment ADEQUATE 07/31/19 01:34 RBC Morph Comment NORMO-CYTIC/CHROMIC 07/31/19 01:34 PT 14.1 SEC (11.4-15.4) 07/31/19 01:34 INR 1.09 07/31/19 01:34 VBG pH 7.37 (7.30-7.42) 07/31/19 02:40 VBG pCO2 40.0 mmHg (35-63) 07/31/19 02:40 VBG HCO3 22.8 mmol/L (20-32) 07/31/19 02:40 VBG Base Excess -2.2 mmol/L 07/31/19 02:40 Sodium 133.7 mmol/L (137-145) L 08/01/19 05:29 Potassium 3.5 mmol/L (3.6-5.0) L 08/01/19 05:29 Chloride 106 mmol/L (98-107) 08/01/19 05:29 Carbon Dioxide 21 mmol/L (22-30) L 08/01/19 05:29 Anion Gap 7 (5-19) 08/01/19 05:29 BUN 4 mg/dL (7-20) L 08/01/19 05:29 Creatinine 0.48 mg/dL (0.52-1.25) L 08/01/19 05:29 Est GFR ( Amer) > 60 (>60) 08/01/19 05:29 Est GFR (MDRD) Non-Af > 60 (>60) 08/01/19 05:29 Glucose 100 mg/dL (75-110) 08/01/19 05:29 POC Glucose 114 mg/dL (70-110) H 07/31/19 02:40 Lactic Acid 0.8 mmol/L (0.7-2.1) 07/31/19 08:33 Calcium 7.7 mg/dL (8.4-10.2) L 08/01/19 05:29 Magnesium 1.8 mg/dL (1.6-2.3) 08/01/19 05:29 Total Bilirubin 1.0 mg/dL (0.2-1.3) 07/31/19 01:34 Direct Bilirubin 0.0 mg/dL (0.0-0.4) 07/31/19 01:34 Neonat Total Bilirubin Not Reportable 07/31/19 01:34 Neonat Direct Bilirubin Not Reportable 07/31/19 01:34 Neonat Indirect Bili Not Reportable 07/31/19 01:34 AST 17 U/L (14-36) 07/31/19 01:34 ALT 10 U/L (<35) 07/31/19 01:34 Alkaline Phosphatase 66 U/L (38-126) 07/31/19 01:34 Total Protein 7.5 g/dL (6.3-8.2) 07/31/19 01:34 Albumin 4.6 g/dL (3.5-5.0) 07/31/19 01:34 Serum HCG, Qual NEGATIVE (NEGATIVE) 07/31/19 01:34 Impressions: Facial Bones CT 07/31/19 03:36 IMPRESSION: Moderate diffuse subcutaneous edema/cellulitis associated with the right buccal tissue/jaw. Moderate bilateral submandibular lymphadenopathy. Plan Plan of Treatment: The patient was discharged in stable condition. She [facility] procedure directly to Dr. Angel's office for extraction of her tooth. Prescriptions for Percocet and Zofran were E prescribed to her office. She was provided a paper prescription to discuss Augmentin with Dr. angel before feeling. Following her discharge, I received a call from [facility] with results of Fusobacterium; often resistant to penicillin alone and recommended to be treated with combination penicillin and metronidazole. Attempted to call both the patient and her mother without answer; left voicemail to return call. Did not hear back from patient or family prior to end of business. Did E-prescribe metronidazole to the patient's pharmacy and requested that they advise her of the addition of antibiotic. She is advised to follow-up with her primary care provider within 1 week and to return to the emergency department as needed for concerning symptoms. Time Spent: Greater than 30 Minutes Stroke Is this a Stroke Patient?: No Acute Heart Failure - Is this a Heart Failure Patient?: No
== END 2019-08-02 11:38 | disposition home or self-care (01) | DRG 872 ==
LOC: ER 00:08 → EH 05:33 → 4W 08:13 → 4S 08-01 15:52
PROVIDERS: ADMIT Internal Medicine; ATTEND Registered Nurse
DX: A41.9 Sepsis, unspecified organism (principal); K12.2 Cellulitis and abscess of mouth; E87.6 Hypokalemia; D72.829 Elevated white blood cell count, unspecified; K08.89 Other specified disorders of teeth and supporting structures
CPT/HCPCS: 36415; 70487; 80048; 80053; 82803; 82962; 83605; 83735; 84703; 85025; 85610; 87040; 87077; 93005; 93010; 96361; 96365; 99285; J0295; J1885; J2405; J2543; J3480; J7030; J7050